=== PATIENT | female | born 1955 | race African-American/Black ===

== ENCOUNTER 2016-11-19 10:52 | Emergency (ER) | payer MEDICARE ==
[~2016-11-19] VITALS: Ht 165.1 cm; Wt 93.6 kg
[~2016-11-19 10:52] MED LIST: ADRENACLICK IM; ALLEGRA180 MG PO; ANTIDEPRESSION; ANTIVERT 25MG25 MG PO; CATAPRES 0.1MG0.1 MG PO; CORTISPORIN OTI10 ML OT; DULERA1 AR1 IH; HCTZ 25MG TAB25 MG PO; HCTZ 25MG25 MG PO; LEVOFLOXACIN; LEVOTHYROXINE PO; MICARDIS HCT 251 TAB PO; MICARDIS80 MG PO; NASONEX SPRAY; NORCO 325 MG-51 TAB PO; NYSTATIN OR100 MU/ML PO; PREDNISONE20 MG PO; PROTONIX 40MG T40 MG PO; PROVENTIL0.09 MG/A1 IH; SINGULAIR; SINGULAIR 110 MG/TAB PO
[2016-11-19 10:55] VITALS: BP 141/83; TEMP 98.5
[2016-11-19] MEDS ORDERED: BREO IH (11:21)
[2016-11-19] MEDS ORDERED: NASONEX SPRAY17 GM NS (11:26)
[2016-11-19] MEDS ORDERED: HYZAAR 25 MG-101 TAB PO (11:28)
[2016-11-19] MEDS ORDERED: [UNRECOGNIZED DRUG - OTHER] IM (11:30)
[2016-11-19] MEDS ORDERED: ANTIVERT 25MG25 MG PO (11:40)
[2016-11-19 11:41] LABS: BASO % 0.5 % (0.0-2.0); EOS # 0.1 (0.0-0.7); EOS % 1.2 % (0-4.0); GRAN # 4.1 (1.4-6.5); GRAN % 70.9 % (42.2-75.2); HEMATOCRIT 34.9 % (37.0-47.0); HEMOGLOBIN 11.7 g/dl (12.5-16.0); LYMPH % 16.8 % (20.0-51.0); MEAN CELL VOLUME 86 fl (80.0-100.0); MEAN CORPUSCULAR HEMOGLOBIN 29 pg (27.0-31.0); MEAN CORPUSCULAR HGB CONC 34 g/dl (33.0-37.0); MEAN PLATELET VOLUME 10.1 fl (7.4-10.4); MONO # 0.6 (0.1-0.6); MONO % 10.3 % (1.7-9.3); PLATELET COUNT 320 K/mm3 (130-400); RED BLOOD COUNT 4.06 M/mm3 (4.10-5.30); REDCELL DISTRIBUTION WIDTH-CV 12.9 % (11.5-14.5); WHITE BLOOD COUNT 5.8 K/mm3 (4.8-10.8)
[2016-11-19 11:52] LABS: ADJUSTED CALCIUM 9.7 mg/dL (8.4-10.2); ALBUMIN 4.2 gm/dL (3.5-5.0); BILIRUBIN,TOTAL 1.1 mg/dL (0.0-1.0); CALCIUM 9.9 mg/dL (8.4-10.2); CREATININE, serum 1.18 mg/dL (0.52-1.25); POTASSIUM 3.3 mmol/L (3.4-5.0); TOTAL PROTEIN 7.9 gm/dL (6.4-8.2)
[2016-11-19] MEDS ORDERED: K-DUR 10 MEQ T10 MEQ PO (12:33)
[2016-11-19 12:52] VITALS: PULSE 68
== END 2016-11-19 13:05 | disposition home or self-care (01) ==
LOC: COL.ER 10:52
PROVIDERS: Emergency Medicine
DX: S09.90XA Unspecified injury of head, initial encounter (principal); R42 Dizziness and giddiness; Z23 Encounter for immunization; S00.511A Abrasion of lip, initial encounter; W01.198A Fall on same level from slipping, tripping and stumbling with subsequent striking against other object, initial encounter

== ENCOUNTER 2017-02-20 14:45 | Outpatient (RCR) | payer MEDICARE ==
[~2017-02-20 14:45] MED LIST changes: +BREO IH; +HYZAAR 25 MG-101 TAB PO; +K-DUR 10 MEQ T10 MEQ PO; +NASONEX SPRAY17 GM NS; +[UNRECOGNIZED DRUG - OTHER] IM
== END 2017-03-01 07:58 | disposition still patient (30) ==
LOC: WSPT 14:45
DX: R26.9 Unspecified abnormalities of gait and mobility (principal); R42 Dizziness and giddiness; G58.9 Mononeuropathy, unspecified
CPT/HCPCS: G8978-GP; G8979-GP; G8980-GP

== ENCOUNTER 2017-04-20 23:48 | Emergency (ER) | payer MEDICARE ==
[~2017-04-20] VITALS: Ht 165.1 cm; Wt 77.3 kg
[2017-04-20 23:53] VITALS: TEMP 98.4
[2017-04-21] MEDS ORDERED: REGLAN 10MG10 MG/TAB PO (01:25)
[2017-04-21 01:27] VITALS: BP 129/82; PULSE 70
== END 2017-04-21 01:33 | disposition home or self-care (01) ==
LOC: COL.ER 23:48
DX: R06.6 Hiccough (principal); H61.22 Impacted cerumen, left ear; I10 Essential (primary) hypertension; E03.9 Hypothyroidism, unspecified

== ENCOUNTER 2017-06-01 11:51 | Inpatient (IN) | payer MEDICARE ==
[2017-06-01] VITALS (117 sets, daily range): BP systolic 98–102; BP diastolic 67–82; PULSE 62–65; TEMP 97.3–97.5; O2SAT 78–100
[~2017-06-01] VITALS: Ht 165.1 cm; Wt 87.3 kg
[~2017-06-01 11:51] MED LIST changes: +REGLAN 10MG10 MG/TAB PO
[2017-06-01 13:16] LABS: BASO % 0.6 % (0.0-2.0); EOS # 0.1 (0.0-0.7); EOS % 1.2 % (0-4.0); GRAN # 3.5 (1.4-6.5); GRAN % 71.5 % (42.2-75.2); LYMPH # 0.7 (1.2-3.4); LYMPH % 14.9 % (20.0-51.0); MEAN CELL VOLUME 87 fl (80.0-100.0); MEAN CORPUSCULAR HGB CONC 33 g/dl (33.0-37.0); MEAN PLATELET VOLUME 11.5 fl (7.4-10.4); MONO # 0.6 (0.1-0.6); MONO % 11.4 % (1.7-9.3); PLATELET COUNT 198 K/mm3 (130-400); RED BLOOD COUNT 4.06 M/mm3 (4.10-5.30); WHITE BLOOD COUNT 4.8 K/mm3 (4.8-10.8)
[2017-06-01 13:21] LABS: HEMATOCRIT 35.3 % (37.0-47.0); HEMOGLOBIN 11.7 g/dl (12.5-16.0); MEAN CORPUSCULAR HEMOGLOBIN 29 pg (27.0-31.0)
[2017-06-01 13:32] LABS: COLLECTION METHOD CLEAN CATCH
[2017-06-01 13:34] LABS: ADJUSTED CALCIUM 9.2 mg/dL (8.4-10.2); ALANINE AMINOTRANSFERASE 28 U/L (9-52); ALBUMIN 3.8 gm/dL (3.5-5.0); ALKALINE PHOSPHATASE 75 U/L (50-136); ANION GAP 9 mmol/L (7-16); BILIRUBIN,TOTAL 0.8 mg/dL (0.0-1.0); BLOOD UREA NITROGEN 13 mg/dL (7-17); C-REACTIVE PROTEIN 1.2 mg/dL (0.0-0.9); CARBON DIOXIDE 24 mmol/L (22-30); CHLORIDE 103 mmol/L (98-107); GLUCOSE 74 mg/dL (74-106); POTASSIUM 3.5 mmol/L (3.4-5.0); SODIUM 137 mmol/L (137-145)
[2017-06-01 13:35] LABS: ACETAMINOPHEN < 10 ug/mL (10-30); ALCOHOL(ethanol),MEDICAL < 10 mg/dL; SALICYLATE < 1.0 mg/dL
[2017-06-01 13:53] LABS: MUCOUS Present /lpf; PH 5 (5-8); SQUAMOUS EPITHELIAL 0-2 /hpf; URINE APPEARANCE Clear; URINE BACTERIA None Seen /hpf; URINE BILIRUBIN Negative (NEGATIVE); URINE BLOOD Negative (NEGATIVE); URINE COLOR Yellow; URINE GLUCOSE Negative (NEGATIVE); URINE KETONE Negative (NEGATIVE); URINE LEUKOCYTE ESTERASE Negative (NEGATIVE); URINE PROTEIN(semi-quant) Negative (NEGATIVE); URINE RBC 0-2 /hpf; URINE UROBILINOGEN Negative (NEGATIVE); URINE WBC 0-2 /hpf
[2017-06-01 14:13] LABS: AMPHETAMINE URINE NEGATIVE; BARBITURATES URINE NEGATIVE; BENZODIAZEPINES URINE NEGATIVE; BUPRENORPHINE URINE NEGATIVE; METHADONE URINE NEGATIVE; OPIATES URINE NEGATIVE; OXYCODONE URINE NEGATIVE; PHENCYCLIDINE URINE NEGATIVE; PROPOXYPHENE URINE NEGATIVE; THC CANNABINOIDS URINE NEGATIVE; TRICYCLIC ANTIDEPRESS URINE NEGATIVE
[2017-06-01 18:46] LABS: ACETONE,SERUM NEGATIVE
[2017-06-01 18:47] LABS: INR 1.1 (0.8-3.0); PROTHROMBIN TIME 12.4 SECONDS (9.7-12.8)
[2017-06-01 21:36] LABS: THYROID STIMULATING HORMONE 1.66 uIU/mL (0.465-4.680)
[2017-06-02] VITALS (7 sets, daily range): BP systolic 90–128; BP diastolic 46–104; PULSE 58–86; TEMP 97.2–98.1
[2017-06-02 02:18] LABS: HEMATOCRIT 34.7 % (37.0-47.0); HEMOGLOBIN 11.5 g/dl (12.5-16.0); MEAN CELL VOLUME 87 fl (80.0-100.0); MEAN CORPUSCULAR HEMOGLOBIN 29 pg (27.0-31.0); MEAN CORPUSCULAR HGB CONC 33 g/dl (33.0-37.0); MEAN PLATELET VOLUME 10.9 fl (7.4-10.4); PLATELET COUNT 261 K/mm3 (130-400); RED BLOOD COUNT 3.98 M/mm3 (4.10-5.30); WHITE BLOOD COUNT 4.4 K/mm3 (4.8-10.8)
[2017-06-02 02:31] LABS: ANION GAP 9 mmol/L (7-16); BLOOD UREA NITROGEN 13 mg/dL (7-17); CALCIUM 9.5 mg/dL (8.4-10.2); CARBON DIOXIDE 27 mmol/L (22-30); CHLORIDE 104 mmol/L (98-107); CREATININE, serum 1.22 mg/dL (0.52-1.25); GLUCOSE 108 mg/dL (74-106); POTASSIUM 3.5 mmol/L (3.4-5.0); SODIUM 140 mmol/L (137-145)
[2017-06-02 02:44] LABS: TROPONIN-I 6 HR POST INITIAL < 0.012 ng/mL (0.000-0.034)
[2017-06-02 17:24] LABS: CEREBROSPINAL TUBE #4; CSF COLOR COLORLESS
[2017-06-02 17:25] LABS: CSF APPEARANCE CLEAR; CSF POLYMORPHONUCLEAR 10 % (0-6)
[2017-06-03 04:14] VITALS: BP 139/100; PULSE 68; TEMP 97.9
[2017-06-03 08:10] VITALS: BP 138/90; PULSE 94; TEMP 98.3
[2017-06-03] MEDS ORDERED: HYZAAR 25 MG-101 TAB PO (09:59)
[2017-06-03 12:19] VITALS: BP 128/75; PULSE 90
[2017-06-05 21:55] LABS: WEST NILE VIRUS IGG PCR CSF Negative (Negative)
== END 2017-06-03 14:59 | disposition home or self-care (01) | DRG 197 ==
LOC: COL.ER 11:51 → ICU 14:52
PROVIDERS: Emergency Medicine; Internal Medicine; Psychiatry & Neurology Neurology
PROC: 009U3ZX Drainage of Spinal Canal, Percutaneous Approach, Diagnostic (ICD-10-PCS; principal; 2017-06-02)
PROC: B01B1ZZ Fluoroscopy of Spinal Cord using Low Osmolar Contrast (ICD-10-PCS; 2017-06-02)
DX: D86.0 Sarcoidosis of lung (principal); I50.32 Chronic diastolic (congestive) heart failure; E86.0 Dehydration; R44.1 Visual hallucinations; R26.0 Ataxic gait; I11.0 Hypertensive heart disease with heart failure; D64.9 Anemia, unspecified
CPT/HCPCS: 99223-AI; 99233-AI; 99238; A9585; J1630; J1650; J1953; J7030

== ENCOUNTER 2017-06-20 15:40 | Emergency (ER) | payer MEDICARE ==
[~2017-06-20] VITALS: Ht 165.1 cm; Wt 84.1 kg
[2017-06-20 15:42] VITALS: TEMP 98
[2017-06-20 16:40] LABS: BASO % 0.4 % (0.0-2.0); GRAN # 1.7 (1.4-6.5); GRAN % 71.2 % (42.2-75.2); HEMATOCRIT 37.6 % (37.0-47.0); HEMOGLOBIN 12.3 g/dl (12.5-16.0); LYMPH # 0.5 (1.2-3.4); LYMPH % 20.6 % (20.0-51.0); MEAN CELL VOLUME 88 fl (80.0-100.0); MEAN CORPUSCULAR HEMOGLOBIN 29 pg (27.0-31.0); MEAN CORPUSCULAR HGB CONC 33 g/dl (33.0-37.0); MEAN PLATELET VOLUME 11.9 fl (7.4-10.4); MONO # 0.2 (0.1-0.6); MONO % 7.4 % (1.7-9.3); PLATELET COUNT 225 K/mm3 (130-400); RED BLOOD COUNT 4.26 M/mm3 (4.10-5.30); WHITE BLOOD COUNT 2.4 K/mm3 (4.8-10.8)
[2017-06-20 16:55] LABS: ARTERIAL BLD GAS O2 SATURATION 92.7 % (92-100); ARTERIAL BLD GAS TCO2 CT 25.1; ARTERIAL BLOOD GAS HCO3 23.7 meq/L (22-26); ARTERIAL BLOOD GAS PO2 74.7 mmHg (80-100); ARTERIAL BLOOD GAS pH 7.35 (7.35-7.45); OXYHEMOGLOBIN 91.9 %
[2017-06-20 16:56] LABS: ALLEN TEST YES; ALLENS TEST RESULT PASS; ATS? YES
[2017-06-20 16:57] LABS: ADJUSTED CALCIUM 9.9 mg/dL (8.4-10.2); ALBUMIN 4.1 gm/dL (3.5-5.0); BILIRUBIN,TOTAL 0.7 mg/dL (0.0-1.0); CREATININE, serum 1.23 mg/dL (0.52-1.25); POTASSIUM 4.2 mmol/L (3.4-5.0); TOTAL PROTEIN 7.9 gm/dL (6.4-8.2)
[2017-06-20] MEDS ORDERED: [UNRECOGNIZED DRUG - OTHER] IM (17:07)
[2017-06-20] MEDS ORDERED: KEPPRA 500MG500 MG PO (17:08)
[2017-06-20] MEDS ORDERED: ANTIVERT 25MG25 MG PO (17:09)
[2017-06-20] MEDS ORDERED: NASAREL0.025 MG/1 NAS (17:09)
[2017-06-20 17:27] LABS: THYROID STIMULATING HORMONE 1.05 uIU/mL (0.465-4.680)
[2017-06-20 18:57] LABS: COLLECTION METHOD CLEAN CATCH
[2017-06-20 19:02] LABS: PH 7 (5-8); SQUAMOUS EPITHELIAL None Seen /hpf; URINE APPEARANCE Clear; URINE BACTERIA None Seen /hpf; URINE BILIRUBIN Negative (NEGATIVE); URINE BLOOD 2+ (NEGATIVE); URINE COLOR Straw; URINE GLUCOSE Negative (NEGATIVE); URINE KETONE Negative (NEGATIVE); URINE LEUKOCYTE ESTERASE Negative (NEGATIVE); URINE PROTEIN(semi-quant) Negative (NEGATIVE); URINE RBC 0-2 /hpf; URINE UROBILINOGEN Negative (NEGATIVE); URINE WBC 0-2 /hpf
[2017-06-20 19:11] LABS: AMPHETAMINE URINE NEGATIVE; BARBITURATES URINE NEGATIVE; BENZODIAZEPINES URINE POSITIVE; BUPRENORPHINE URINE NEGATIVE; METHADONE URINE NEGATIVE; OPIATES URINE NEGATIVE; OXYCODONE URINE NEGATIVE; PHENCYCLIDINE URINE NEGATIVE; PROPOXYPHENE URINE NEGATIVE; THC CANNABINOIDS URINE NEGATIVE; TRICYCLIC ANTIDEPRESS URINE NEGATIVE
[2017-06-20 19:41] VITALS: BP 132/78; PULSE 40
== END 2017-06-20 20:03 | disposition short-term general hospital (02) ==
LOC: COL.ER 15:40
PROVIDERS: Family Medicine
DX: D86.89 Sarcoidosis of other sites (principal); D72.819 Decreased white blood cell count, unspecified; R41.82 Altered mental status, unspecified; I10 Essential (primary) hypertension
CPT/HCPCS: J7030

== ENCOUNTER 2017-07-19 20:16 | Emergency (ER) | payer MEDICARE ==
[~2017-07-19] VITALS: Ht 165.1 cm; Wt 92.9 kg
[~2017-07-19 20:16] MED LIST changes: +KEPPRA 500MG500 MG PO; +NASAREL0.025 MG/1 NAS; +[UNRECOGNIZED DRUG - OTHER] IM
[2017-07-19 20:26] VITALS: TEMP 96.4
[2017-07-19] MEDS ORDERED: B-12 500 MCG (21:24)
[2017-07-19] MEDS ORDERED: MULTI VITAMINS1 TAB PO (21:25)
[2017-07-19] MEDS ORDERED: PREDNISONE10 MG PO (21:26)
[2017-07-19] MEDS ORDERED: BACTRIM 400 MG-1 TAB PO (21:26)
[2017-07-19 21:28] LABS: BASO % 0.2 % (0.0-2.0); GRAN # 5.6 (1.4-6.5); HEMATOCRIT 29.1 % (37.0-47.0); HEMOGLOBIN 9.2 g/dl (12.5-16.0); LYMPH # 0.2 (1.2-3.4); LYMPH % 2.9 % (20.0-51.0); MEAN CELL VOLUME 93 fl (80.0-100.0); MEAN CORPUSCULAR HEMOGLOBIN 29 pg (27.0-31.0); MEAN CORPUSCULAR HGB CONC 32 g/dl (33.0-37.0); MEAN PLATELET VOLUME 12.4 fl (7.4-10.4); MONO # 0.2 (0.1-0.6); MONO % 3.7 % (1.7-9.3); PLATELET COUNT 158 K/mm3 (130-400); RED BLOOD COUNT 3.14 M/mm3 (4.10-5.30); WHITE BLOOD COUNT 6.2 K/mm3 (4.8-10.8)
[2017-07-19 21:38] LABS: ADJUSTED CALCIUM 10.1 mg/dL (8.4-10.2); ALANINE AMINOTRANSFERASE 55 U/L (9-52); ALBUMIN 3.2 gm/dL (3.5-5.0); ALKALINE PHOSPHATASE 101 U/L (50-136); ANION GAP 7 mmol/L (7-16); BILIRUBIN,TOTAL 0.6 mg/dL (0.0-1.0); BLOOD UREA NITROGEN 26 mg/dL (7-17); CALCIUM 9.5 mg/dL (8.4-10.2); CARBON DIOXIDE 34 mmol/L (22-30); CHLORIDE 100 mmol/L (98-107); CREATININE, serum 1.13 mg/dL (0.52-1.25); GLUCOSE 119 mg/dL (74-106); INR 0.9 (0.8-3.0); POTASSIUM 3.1 mmol/L (3.4-5.0); PROTHROMBIN TIME 9.7 SECONDS (9.7-12.8); SODIUM 140 mmol/L (137-145)
[2017-07-19 21:41] LABS: PARTIAL THROMBOPLASTIN TIME 30.9 SECONDS (26.0-37.0)
[2017-07-19 21:50] LABS: B-TYPE NATRIURETIC PEPTIDE 451 pg/mL (0-125); TROPONIN-I < 0.012 ng/mL (0.000-0.034)
[2017-07-19 23:00] VITALS: BP 158/71
[2017-07-19] MEDS ORDERED: NYSTATIN OR100 MU/ML PO (23:04)
[2017-07-19 23:27] VITALS: PULSE 60
== END 2017-07-20 00:42 | disposition home or self-care (01) ==
LOC: COL.ER 20:16
PROVIDERS: Emergency Medicine
DX: R06.00 Dyspnea, unspecified (principal); B37.9 Candidiasis, unspecified; D86.9 Sarcoidosis, unspecified; D64.9 Anemia, unspecified; E87.6 Hypokalemia; I10 Essential (primary) hypertension; E03.9 Hypothyroidism, unspecified; Z87.891 Personal history of nicotine dependence; Z90.710 Acquired absence of both cervix and uterus
CPT/HCPCS: J7040; J7050; Q9967

== ENCOUNTER 2017-07-22 21:56 | Emergency (ER) | payer MEDICARE ==
[~2017-07-22] VITALS: Ht 165.1 cm; Wt 90.9 kg
[~2017-07-22 21:56] MED LIST changes: +B-12 500 MCG; +BACTRIM 400 MG-1 TAB PO; +MULTI VITAMINS1 TAB PO; +PREDNISONE10 MG PO
[2017-07-22 22:44] LABS: MEAN CELL VOLUME 94 fl (80.0-100.0); MEAN CORPUSCULAR HGB CONC 31 g/dl (33.0-37.0); MEAN PLATELET VOLUME 12.2 fl (7.4-10.4); PLATELET COUNT 194 K/mm3 (130-400); WHITE BLOOD COUNT 6.7 K/mm3 (4.8-10.8)
[2017-07-22 22:49] LABS: HEMATOCRIT 32.9 % (37.0-47.0); HEMOGLOBIN 10.2 g/dl (12.5-16.0); MEAN CORPUSCULAR HEMOGLOBIN 29 pg (27.0-31.0)
[2017-07-22 22:50] LABS: ADD PATHOLOGY DIFF REVIEW NO
[2017-07-22 22:56] LABS: ADJUSTED CALCIUM 10.1 mg/dL (8.4-10.2); ALANINE AMINOTRANSFERASE 71 U/L (9-52); ALBUMIN 3.6 gm/dL (3.5-5.0); ALKALINE PHOSPHATASE 100 U/L (50-136); BILIRUBIN,TOTAL 0.5 mg/dL (0.0-1.0); BLOOD UREA NITROGEN 21 mg/dL (7-17); CALCIUM 9.8 mg/dL (8.4-10.2); CHLORIDE 91 mmol/L (98-107); CREATININE, serum 1.13 mg/dL (0.52-1.25); GLUCOSE 130 mg/dL (74-106); MAGNESIUM 2.3 mg/dL (1.6-2.3); PHOSPHOROUS 3.7 mg/dL (2.5-4.5); SODIUM 139 mmol/L (137-145); TOTAL PROTEIN 6.4 gm/dL (6.4-8.2)
[2017-07-22 23:02] LABS: CARBON DIOXIDE 40 mmol/L (22-30)
[2017-07-22 23:03] LABS: INFLUENZA A NEGATIVE; INFLUENZA B NEGATIVE
[2017-07-22 23:05] LABS: ANION GAP 8 mmol/L (7-16)
[2017-07-22 23:06] LABS: B-TYPE NATRIURETIC PEPTIDE 274 pg/mL (0-125); POTASSIUM 2.8 mmol/L (3.4-5.0); TROPONIN-I < 0.012 ng/mL (0.000-0.034)
[2017-07-22 23:07] LABS: ERYTHROCYTE SEDIMENTATION RATE 44 mm/hr (0-30)
[2017-07-22 23:08] LABS: ARTERIAL BLD GAS O2 SATURATION 93.2 % (92-100); ARTERIAL BLD GAS TCO2 CT 43.8; ARTERIAL BLOOD GAS BASE EXCESS 14.8 (-2-2); ARTERIAL BLOOD GAS HCO3 41.8 meq/L (22-26); ARTERIAL BLOOD GAS pH 7.42 (7.35-7.45); OXYHEMOGLOBIN 92.3 %
[2017-07-22 23:10] LABS: ALLEN TEST YES; ALLENS TEST RESULT PASS; ATS? YES
[2017-07-22 23:18] LABS: BAND 41 % (0-10); HYPOCHROMIA 2+; LYMPHOCYTE 6 % (20.0-51.0); NEUTROPHILS 46 % (42.0-75.2); NUCLEATED RED BLOOD CELL 2 (0-6); PLATELET ESTIMATE NORMAL (NORMAL); TOTAL CELLS COUNTED 100
[2017-07-23 01:05] VITALS: TEMP 95.8
[2017-07-23 02:16] LABS: THYROID STIMULATING HORMONE 2.12 uIU/mL (0.465-4.680)
[2017-07-23 02:30] VITALS: BP 125/101; PULSE 95
== END 2017-07-23 02:30 | disposition short-term general hospital (02) ==
LOC: COL.ER 21:56
PROVIDERS: Emergency Medicine
DX: D86.9 Sarcoidosis, unspecified (principal); E87.6 Hypokalemia; R06.02 Shortness of breath
CPT/HCPCS: J1956; J3480; J7040